=== PATIENT | male | born 2000 | race Two or more races ===

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

== ENCOUNTER 2021-02-03 20:06 | Emergency (ER) | payer MEDICAID, OTHER, SELFPAY ==
[~2021-02-03] VITALS: Ht 172.7 cm; Wt 66.1 kg
[2021-02-03 22:32] LABS: GC DNA AMPLIFICATION NEGATIVE (NEGATIVE)
[2021-02-03] MEDS ORDERED: CIPR-249 PO (22:50)
[2021-02-03] MEDS ORDERED: CIPROFLOXACIN 500MG TABLET PO ONE (22:55)
[2021-02-03 23:03] VITALS: BP 125/79
== END 2021-02-03 23:04 | disposition home or self-care (01) ==
LOC: M ED 20:06
DX: N39.0 Urinary tract infection, site not specified (principal); R56.9 Unspecified convulsions; Z79.3 Long term (current) use of hormonal contraceptives

== ENCOUNTER → 2021-08-08 | Outpatient (REF) | payer OTHER ==
[~2021-08-08] MED LIST changes: +CIPR-249 PO
[2021-08-08 23:36] LABS: GC DNA AMPLIFICATION NEGATIVE (NEGATIVE)
== END ==
LOC: M LAB REF 21:25
PROVIDERS: ATTEND Physician Assistant
DX: Z11.3 Encounter for screening for infections with a predominantly sexual mode of transmission (principal)

== ENCOUNTER → 2021-11-19 | Outpatient (REF) | payer OTHER | LOC: M LAB REF 18:16 | PROVIDERS: ATTEND Physician Assistant Medical | DX: Z11.3 Encounter for screening for infections with a predominantly sexual mode of transmission (principal) ==